=== PATIENT | female | born 1985 | race Caucasian/White ===

== ENCOUNTER 2017-06-25 17:48 | Outpatient (CLI) | payer OTHER ==
[2017-06-25 17:59] LABS: BASOPHILS % 0.5 (0.0-1.5); EOSINOPHILS % 2.5 % (0.0-6.8); MEAN CORPUSCULAR HEMOGLOBIN 24.1 pg (28.0-34.0); MEAN CORPUSCULAR VOLUME 76.8 fl (80.0-100.0); MONOCYTES % 4.7 % (0.0-11.0); NEUTROPHILS # 4.6 # k/uL (1.4-7.7)
== END 2017-06-25 17:55 ==
LOC: LAB 17:48
PROVIDERS: ATTEND Nurse Practitioner Family
DX: E61.1 Iron deficiency (principal)
CPT/HCPCS: 36415; 85025